=== PATIENT | male | born 1990 | race Caucasian/White ===

== ENCOUNTER 2017-04-02 06:43 | Day surgery (SDC) | payer BC ==
[~2017-04-02 06:43] MED LIST: LIDOCAINE W/ SODIUM BICARB 0.5 ML SYR ONE; Lactated Ringers 1,000 ML PRIMARY IV ONE
[2017-04-02] MEDS ORDERED: fentaNYL Inj 250 MCG/5 ML VIAL ONE (07:01)
[2017-04-02] MEDS ORDERED: MIDAZOLAM 5 MG/1 ML ONE (07:01)
[2017-04-02] MEDS ORDERED: Lidocaine Inj 1% 20 ML ONE (07:08)
[2017-04-02] MEDS ORDERED: Lactated Ringers 1,000 ML PRIMARY IV ONE (08:25)
[2017-04-02] MEDS ORDERED: NEOMYCIN/BACITRACIN/POLYMYXIN 0.9 GM OINT PACKET TOPICAL ONE (08:30)
[2017-04-02] MEDS ORDERED: HYDROcodone-APAP 5 MG -325 MG TABLET PO ONE (09:06)
--- NOTE | 2017-04-02 09:32 | GEN.OPNOTE ---
Operative Note Surgery Date: 04/02/17 Preoperative Diagnosis: Desire for sterilization Postoperative Diagnosis: Same Procedure: Vasectomy Surgeon: Genaro Nick MD Anesthesia Provider: Zeeshan Cheek CRNA Anesthesia Type: Local, MAC Estimated Blood Loss (mL): 2 Fluids: Please see anesthesia notes in EMR Pathology: Right left this deferens Findings: Desire for sterilization Operative Summary: The patient was brought into the operating room placed in dorsal lithotomy position prepped draped sterile fashion. I identified the vas deferens on the left side initially infiltrate local anesthetic dissect out the vas deferens removed a 1 cm segment tied off the distal end. I sewed the distal cut in back upon itself. I then returned the spermatic cord and its anatomical position closed the skin with 5-0 Vicryl simple sutures. I then identified the vas on the right side infiltrate local anesthetic. Dissect out the vas deferens. Removed a 1 cm segment. I tied off the distal and in a similar fashion Close the skin in a similar fashion. Patient tolerated well no complications. Counts were correct.
[2017-04-02 10:52] VITALS: RESP 14; TEMP 97
== END 2017-04-02 09:37 | disposition home or self-care (01) ==
LOC: SDSC 06:43
PROVIDERS: ATTEND Surgery
DX: Z30.2 Encounter for sterilization (principal)
CPT/HCPCS: 55250; J2704; J3010; J2001; J2250; J7120